=== PATIENT | female | born 1990 | race Asian ===

== ENCOUNTER 2020-04-19 17:16 | Emergency (ER) | payer MEDICAID ==
[~2020-04-19] VITALS: Ht 167.6 cm; Wt 48.1 kg
[2020-04-19 17:22] VITALS: BP_SYST 113
[2020-04-19 17:50] VITALS: BP_SYST 113
== END 2020-04-19 17:50 | disposition home or self-care (01) ==
LOC: SED 17:16
DX: S80.11XA Contusion of right lower leg, initial encounter (principal); X58.XXXA Exposure to other specified factors, initial encounter; Y93.89 Activity, other specified; Y92.89 Other specified places as the place of occurrence of the external cause; Y99.8 Other external cause status
CPT/HCPCS: 99281